=== PATIENT | male | born 1950 | race Caucasian/White ===

== ENCOUNTER → 2017-02-14 | Outpatient (CLI) | payer OTHER, MEDICARE | LOC: BHLMT 08:30 | PROVIDERS: ATTEND Internal Medicine Interventional Cardiology | DX: R01.1 Cardiac murmur, unspecified (principal); R06.00 Dyspnea, unspecified | CPT/HCPCS: 93306-PO ==

== ENCOUNTER → 2017-06-14 | Outpatient (CLI) | payer OTHER, MEDICARE ==
[~2017-06-14] MED LIST: IOPAMIDOL (ISOVUE 370) 100 ML BTL IV ONE
== END ==
LOC: FIMAGING 12:41
PROVIDERS: ATTEND Internal Medicine Cardiovascular Disease
DX: R07.9 Chest pain, unspecified (principal); R06.00 Dyspnea, unspecified
CPT/HCPCS: 75574; Q9967

== ENCOUNTER → 2018-04-23 | Outpatient (CLI) | payer OTHER, MEDICARE | LOC: BMCIMAGING 15:12 | PROVIDERS: ATTEND Internal Medicine Rheumatology | DX: Z13.820 Encounter for screening for osteoporosis (principal); Z87.81 Personal history of (healed) traumatic fracture ==